=== PATIENT | male | born 1985 | race African-American/Black ===

== ENCOUNTER 2017-11-27 22:06 | Emergency (ER) | payer SELFPAY ==
[2017-11-28] MEDS ORDERED: BUPIVACAINE 0.5% PF 10 ML VIAL ONE (00:09)
[2017-11-28] MEDS ORDERED: LIDOCAINE 1% MPF 5 ML VIAL ONE (00:09)
[2017-11-28] MEDS ORDERED: TETANUS & DIPHTHERIA TOX,ADULT 0.5 ML VIAL ONE (00:10)
--- NOTE | 2017-11-28 00:34 | ER ---
Nurse's Notes [facility] Name: Scotty Redman Age: 31 yrs Sex: Male : 1985 Arrival Date: 11/27/2017 Time: 22:15 Bed 25 Private MD: Diagnosis: Laceration without foreign body of finger without damage to nail Presentation: 11/27 22:26 Presenting complaint: Patient states: he cut his left pinky finger on the metal part of bb a bucket approx 1800 tonight. Transition of care: patient was not received from another setting of care. Onset of symptoms was November 27, 2017. Risk Assessment: Do you want to hurt yourself or someone else? Patient reports no desire to harm self or others. Initial Sepsis Screen: Does the patient meet any 2 criteria? No. Patient's initial sepsis screen is negative. Does the patient have a suspected source of infection? No. Patient's initial sepsis screen is negative. Care prior to arrival: None. 22:26 Method Of Arrival: Ambulatory bb 22:26 Acuity: ANA 4 bb Triage Assessment: 22:39 General: Appears in no apparent distress. comfortable, Behavior is calm, cooperative. rv 22:39 Injury Description: Laceration sustained to palmar aspect of distal phalanx of right rv little finger, palmar aspect of middle phalanx of right little finger and palmar aspect of proximal phalanx of right little finger. Historical: - Allergies: 22:27 No Known Allergies; bb - Home Meds: 22:27 None [Active]; bb - PMHx: 22:27 None; bb - PSHx: 22:27 None; bb - Immunization history:: Last tetanus immunization: unknown. - Social history:: Smoking status: Patient uses tobacco products, smokes one-half pack cigarettes per day, Patient uses alcohol, occasionally. Patient/guardian denies using street drugs. - Ebola Screening: : No symptoms or risks identified at this time. Screenin:39 Abuse screen: Denies threats or abuse. Denies injuries from another. Nutritional rv screening: No deficits noted. Tuberculosis screening: No symptoms or risk factors identified. Fall Risk None identified. Assessment: 22:37 General: Appears in no apparent distress. comfortable, Behavior is calm, cooperative. rv Pain: Complains of pain in palmar aspect of distal phalanx of right little finger, palmar aspect of middle phalanx of right little finger and palmar aspect of proximal phalanx of right little finger. Neuro: Level of Consciousness is awake, alert, obeys commands, Oriented to person, place, time, situation. Cardiovascular: Capillary refill < 3 seconds. Respiratory: Reports. GI: No signs and/or symptoms were reported involving the gastrointestinal system. : No signs and/or symptoms were reported regarding the genitourinary system. EENT: No signs and/or symptoms were reported regarding the EENT system. Derm: Skin is intact. Musculoskeletal: laceration. Vital Signs: 22:27 BP 146 / 82; Pulse 91; Resp 16 S; Temp 99.3(O); Pulse Ox 98% on R/A; Weight 102.06 kg bb (R); Height 5 ft. 11 in. (180.34 cm) (R); Pain 8/10; 23:01 BP 132 / 81; Pulse 83; Pulse Ox 97% on R/A; rv 11/28 00:42 BP 132 / 69; rv 11/27 22:27 Body Mass Index 31.38 (102.06 kg, 180.34 cm) ED Course: 11/27 22:15 Patient arrived in ED. al2 22:27 Triage completed. bb 22:27 Arm band placed on Patient placed in an exam room, on a stretcher, on pulse oximetry. bb Family accompanied patient. 22:27 Wound care: to laceration located on palmar aspect of distal phalanx of right little jp3 finger and palmar aspect of middle phalanx of right little finger was irrigated with normal saline, Patient tolerated well. wrapped in gaze and coban tape. 22:28 Bed in low position. Call light in reach. Pulse ox on. NIBP on. jp3 23:34 Xi Dangel[facility]C [facility]. snw 23:35 Brandon Hicks MD is Attending Physician. snw 11/28 00:41 Assist provider with laceration repair on palmar aspect of distal phalanx of right rv little finger, palmar aspect of middle phalanx of right little finger and palmar aspect of proximal phalanx of right little finger that was 2.5 cm. or less using sutures. Set up tray. Performed by Xi ATKINSON Dressed with GAUZE AND CO-BAND Patient tolerated well. Patient did not have IV access during this emergency room visit. Administered Medications: No medications were administered Outcome: 00:34 Discharge ordered by . snrebecca 00:42 Discharged to home ambulatory. rv 00:42 Condition: improved 00:59 Discharge instructions given to patient, Instructed on discharge instructions, follow rv up and referral plans. medication usage, Prescriptions given X 2. 00:59 Patient left the ED. rv Signatures: Xi Dangelo, SHOW HOST-C SHOW HOST-Csnw Rabia Rolon, RN RN bb Harriet Naik Ronaldo, JOSÉ MANUEL RN rv Roger Lind jp3
--- NOTE | 2017-11-28 00:34 | EDPHYS ---
Physician Documentation [facility] Name: Scotty Redman Age: 31 yrs Sex: Male : 1985 Arrival Date: 11/27/2017 Time: 22:15 Bed 25 Private MD: ED Physician Brandon Hicks HPI: 11/28 01:13 This 31 yrs old Black Male presents to ER via Ambulatory with complaints of Finger snw Injury. 01:13 Trauma demographics: County: The injury occurred in [place] Location of Injury: The snw injury occurred at work, Date: November 27, 2017. Mechanism of injury: tear. Associated injuries: The patient sustained palmar aspect of proximal phalanx of right little finger, laceration, 3 cm(s), painful injury. Onset: The symptoms/episode began/occurred suddenly, just prior to arrival. The patient has experienced a previous episode. The patient has not recently seen a physician. 01:14 pt carrying a metal bucket and it slipped and the handle cut the pt's finger. snw Historical: - Allergies: 11/27 22:27 No Known Allergies; bb - Home Meds: 22:27 None [Active]; bb - PMHx: 22:27 None; bb - PSHx: 22:27 None; bb - Immunization history:: Last tetanus immunization: unknown. - Social history:: Smoking status: Patient uses tobacco products, smokes one-half pack cigarettes per day, Patient uses alcohol, occasionally. Patient/guardian denies using street drugs. - Ebola Screening: : No symptoms or risks identified at this time. ROS: 11/28 01:13 Constitutional: Negative for fever, chills, and weight loss, Eyes: Negative for injury, snw pain, redness, and discharge, ENT: Negative for injury, pain, and discharge, Neck: Negative for injury, pain, and swelling, Cardiovascular: Negative for chest pain, palpitations, and edema, Respiratory: Negative for shortness of breath, cough, wheezing, and pleuritic chest pain, Abdomen/GI: Negative for abdominal pain, nausea, vomiting, diarrhea, and constipation, Back: Negative for injury and pain, : Negative for injury, bleeding, discharge, and swelling, MS/Extremity: Negative for injury and deformity, Neuro: Negative for headache, weakness, numbness, tingling, and seizure. Skin: Positive for laceration(s), of the palmar aspect of middle phalanx of right little finger. Exam: 01:11 Constitutional: This is a well developed, well nourished patient who is awake, alert, snw and in no acute distress. Head/Face: Normocephalic, atraumatic. Eyes: Pupils equal round and reactive to light, extra-ocular motions intact. Lids and lashes normal. Conjunctiva and sclera are non-icteric and not injected. Cornea within normal limits. Periorbital areas with no swelling, redness, or edema. ENT: Nares patent. No nasal discharge, no septal abnormalities noted. Tympanic membranes are normal and external auditory canals are clear. Oropharynx with no redness, swelling, or masses, exudates, or evidence of obstruction, uvula midline. Mucous membranes moist. Neck: Trachea midline, no thyromegaly or masses palpated, and no cervical lymphadenopathy. Supple, full range of motion without nuchal rigidity, or vertebral point tenderness. No Meningismus. Chest/axilla: Normal chest wall appearance and motion. Nontender with no deformity. No lesions are appreciated. Cardiovascular: Regular rate and rhythm with a normal S1 and S2. No gallops, murmurs, or rubs. Normal PMI, no JVD. No pulse deficits. Respiratory: Lungs have equal breath sounds bilaterally, clear to auscultation and percussion. No rales, rhonchi or wheezes noted. No increased work of breathing, no retractions or nasal flaring. Abdomen/GI: Soft, non-tender, with normal bowel sounds. No distension or tympany. No guarding or rebound. No evidence of tenderness throughout. Back: No spinal tenderness. No costovertebral tenderness. Full range of motion. MS/ Extremity: Pulses equal, no cyanosis. Neurovascular intact. Full, normal range of motion. Neuro: Awake and alert, GCS 15, oriented to person, place, time, and situation. Cranial nerves II-XII grossly intact. Motor strength 5/5 in all extremities. Sensory grossly intact. Cerebellar exam normal. Normal gait. Psych: Awake, alert, with orientation to person, place and time. Behavior, mood, and affect are within normal limits. 01:11 Skin: Appearance: normal except for affected area, injury, laceration(s), the wound is approximately 3 cm(s), with a depth of 2.5 cm(s), of the palmar aspect of proximal phalanx of right little finger. Vital Signs: 11/27 22:27 BP 146 / 82; Pulse 91; Resp 16 S; Temp 99.3(O); Pulse Ox 98% on R/A; Weight 102.06 kg bb (R); Height 5 ft. 11 in. (180.34 cm) (R); Pain 8/10; 23:01 BP 132 / 81; Pulse 83; Pulse Ox 97% on R/A; rv 11/28 00:42 BP 132 / 69; rv 11/27 22:27 Body Mass Index 31.38 (102.06 kg, 180.34 cm) bb Laceration: 00:31 Wound Repair of 3cm ( 1.2in ) subcutaneous laceration to palmar aspect of proximal snw phalanx of right little finger. Linear shaped.. Distal neuro/vascular/tendon intact. Anesthesia: Digital block administered with 5 mls of 0.5% marcaine, Digital block administered with 5 mls of 0.25% marcaine. Wound prep: Extensive cleansing with hibiclenz by hi. Skin closed with 7 4-0 Prolene using simple sutures and sterile technique. Dressed with pressure dressing. Patient tolerated well. MDM: 11/27 23:35 Patient medically screened. snw 23:54 Patient medically screened. snw 11/28 01:12 Data reviewed: vital signs, nurses notes. Data interpreted: Pulse oximetry: on room air snw is 97 %. Interpretation: normal. Counseling: I had a detailed discussion with the patient and/or guardian regarding: the historical points, exam findings, and any diagnostic results supporting the discharge/admit diagnosis, the presence of at least one elevated blood pressure reading (>120/80) during this emergency department visit, the need for outpatient follow up, to return to the emergency department if symptoms worsen or persist or if there are any questions or concerns that arise at home. Special discussion: I have referred the patient to see his PCP for further evaluation of high blood pressure. I discussed in detail with the patient the higher chance of wound infection based on his presenting history. Based on the history and exam findings, there is no indication for further emergent testing or inpatient evaluation. I discussed with the patient/guardian the need to see the primary care provider for further evaluation of the symptoms. Administered Medications: No medications were administered Disposition: 06:43 Co-signature as Attending Physician, Brandon Hicks MD I agree with the assessment and [facility] plan of care. Disposition: 11/28/17 00:34 Discharged to Home. Impression: Laceration without foreign body of finger without damage to nail. - Condition is Stable. - Discharge Instructions: Hypertension, Laceration Care, Adult, Sutured Wound Care, VIS, Tetanus, Diphtheria (Td) - CDC. - Prescriptions for Keflex 500 mg Oral Capsule - take 1 capsule by ORAL route every 8 hours for 10 days; 30 capsule. Diclofenac Sodium 75 mg Oral Tablet Sustained Release - take 1 tablet by ORAL route 2 times per day; 30 tablet. - Work release form, Family Work Release, Medication Reconciliation Form, Thank You Letter, Antibiotic Education, Prescription Opioid Use form. - Follow up: Private Physician; When: 7 - 10 days; Reason: Recheck today's complaints, Continuance of care, Re-evaluation by your physician. Follow up: Emergency Department; When: As needed; Reason: Worsening of condition. Signatures: Brandon Hicks MD MD cha Therrien, Shelly, PARACHUTE PACKER-C PARACHUTE PACKER-Csnw Rabia Rolon, JOSÉ MANUEL RN bb Damon Fatima, RN RN rv Corrections: (The following items were deleted from the chart) 00:56 00:31 Wound Repair of 2.5cm ( 1.0in ) subcutaneous laceration to palmar aspect of snw proximal phalanx of right little finger. Linear shaped.. Distal neuro/vascular/tendon intact. Anesthesia: Digital block administered with 5 mls of 0.5% marcaine, Digital block administered with 5 mls of 0.25% marcaine. Wound prep: Extensive cleansing with hibiclenz by hi. Skin closed with 5 4-0 Prolene using simple sutures and sterile technique. Dressed with pressure dressing. Patient tolerated well. snw 00:59 00:34 11/28/2017 00:34 Discharged to Home. Impression: Laceration without foreign body rv of finger without damage to nail. Condition is Stable. Discharge Instructions: Hypertension, Laceration Care, Adult, Sutured Wound Care, VIS, Tetanus, Diphtheria (Td) - CDC. Prescriptions for Keflex 500 mg Oral Capsule - take 1 capsule by ORAL route every 8 hours for 10 days; 30 capsule, Diclofenac Sodium 75 mg Oral Tablet Sustained Release - take 1 tablet by ORAL route 2 times per day; 30 tablet. and Forms are Work release form, Family Work Release, Medication Reconciliation Form, Thank You Letter, Antibiotic Education, Prescription Opioid Use. Follow up: Private Physician; When: 7 - 10 days; Reason: Recheck today's complaints, Continuance of care, Re-evaluation by your physician. Follow up: Emergency Department; When: As needed; Reason: Worsening of condition. snw 01:12 00:31 Wound Repair of 2.5cm ( 1.0in ) subcutaneous laceration to palmar aspect of snw proximal phalanx of right little finger. Linear shaped.. Distal neuro/vascular/tendon intact. Anesthesia: Digital block administered with 5 mls of 0.5% marcaine, Digital block administered with 5 mls of 0.25% marcaine. Wound prep: Extensive cleansing with hibiclenz by me. Skin closed with 7 4-0 Prolene using simple sutures and sterile technique. Dressed with pressure dressing. Patient tolerated well. snw
[2017-11-28 01:42] VITALS: TEMP 99.3
[2017-11-28 01:43] VITALS: BP 132/69; O2SAT 97
== END 2017-11-28 00:59 | disposition home or self-care (01) ==
LOC: ER 22:06
PROC: 0JQJ0ZZ Repair Right Hand Subcutaneous Tissue and Fascia, Open Approach (ICD-10-PCS; principal; 2017-11-28)
DX: S61.216A Laceration without foreign body of right little finger without damage to nail, initial encounter (principal); W26.8XXA Contact with other sharp object(s), not elsewhere classified, initial encounter; Y93.9 Activity, unspecified; Y92.9 Unspecified place or not applicable
CPT/HCPCS: 90714; 99284